=== PATIENT | male | born 1990 | race Caucasian/White ===

== ENCOUNTER 2016-04-10 09:51 | Emergency (ER) | payer SELFPAY ==
[~2016-04-10] VITALS: Wt 81.5 kg
[2016-04-10 09:53] VITALS: Wt 81.5 kg
[2016-04-10] MEDS ORDERED: TETRACAINE 0.5% 15 ML OPH RIGHT EYE ONE (11:30)
[2016-04-10] MEDS ORDERED: FLUORESCEIN STRIP RIGHT EYE ONE (11:30)
[2016-04-10] MEDS ORDERED: OFLO5DRO46 RIGHT EYE (11:33)
--- NOTE | 2016-04-10 13:27 | ERD ---
DATE OF SERVICE: 04/10/2016 HISTORY OF PRESENT ILLNESS: The patient is a 25-year-old male coming in complaining of right eye pa in. Patient feels that he may have a foreign body in his eye since yesterday. He does not know wha t it could be. He states he has had clear drainage from his eye. He does not feel that there is an y deficit in his vision. He has not tried any drops or medication in his eye. He does not wear con tacts or glasses. PAST MEDICAL HISTORY: Denies any medical problems. ALLERGIES TO MEDICATIONS: DENIES. SURGICAL HISTORY: Denies. SOCIAL HISTORY: Denies. REVIEW OF SYSTEMS: A 12-point review of systems was done. Refer to HPI for positives, all other sy stems negative. PHYSICAL EXAMINATION VITAL SIGNS: Temperature is 98.5, pulse 82, blood pressure is 130/77, respiratory rate 20, O2 satur ation 100% on room air. Pain intensity is 7/10. GENERAL: The patient is well-appearing, well-nourished, no acute distress. HEENT: There is mild injection noted to the right eye with a questionable foreign body seen over th e cornea. There is no aqueous fluid drainage. Pupils equal, round and reactive to light. Extraocu lar movements intact. CHEST: Clear to auscultation bilaterally. There are no rales, wheezes or rhonchi. HEART: Regular rate and rhythm. No murmurs, clicks, rubs or gallops. No S3 or S4. SKIN: There is no apparent rash or petechia. The skin is warm and dry. EMERGENCY ROOM COURSE: Fluoroscein stain was placed. Patient had visual acuity in the ER by right eye was 20/20, left eye 20/20, bilateral 20/20. Patient had fluoroscein stain applied to the eye an d there was a small foreign body seen over the cornea. Using an insulin syringe, the foreign body w as gently removed. There was no iatrogenic injury of the globe and no globe rupture. DIAGNOSIS: Foreign body eye, removed. MEDICAL DECISION MAKING: I have low suspicion for iatrogenic injury of the globe. Low suspicion fo r retained foreign body. Foreign body was removed and appeared to be a clear claudia. DISCHARGE: The patient is discharged stable. Patient is given a prescription for Ocuflox and told to follow up with Ophthalmology if symptoms change or worsen. Patient was told if symptoms progress or worsen to return to the ER. All other questions answered at time of discharge. Discharge summa ry given at the time of departure. Patient understood and complied with plan. Patient is told to use oral antibiotics to prevent against further injury to the cornea. Dictated By: RASHID BONE/BELTRAN Conf#: [id number] DID#: [id number]
== END 2016-04-10 12:37 | disposition home or self-care (01) ==
LOC: FTE 09:51
DX: T15.01XA Foreign body in cornea, right eye, initial encounter (principal); X58.XXXA Exposure to other specified factors, initial encounter; Y92.9 Unspecified place or not applicable